=== PATIENT | female | born 1965 | race Caucasian/White ===

== ENCOUNTER 2019-05-30 20:20 | Emergency (ER) | payer BC ==
--- NOTE | 2019-05-30 21:29 | ED ---
Complex/Multi-Sys Presentation - HPI Summary HPI Summary: This patient is a 53 year old F presenting to [facility] accompanied by her with a chief complaint of dizziness, lightheadedness, and nausea since 2-3 weeks ago. Pt states she went to her doctor 2-3 weeks ago, who adjusted her medications. Her symptoms were still present afterwards. Pt notes the dizziness worsens with movement. The patient rates the pain 0/10 in severity. Symptoms aggravated by movement. Symptoms alleviated by nothing. Pt denies eye problems, fever, rhinorrhea. Pt does not smoke. - History Of Current Complaint Chief Complaint: EDGeneral Time Seen by Provider: 05/30/19 21:18 Hx Obtained From: Patient Onset/Duration: Sudden Onset, Lasting Weeks - 2-3 Timing: Weeks - 2-3 Severity Currently: Mild Severity Initially: Mild Aggravating Factor(s): movement makes dizziness worse Alleviating Factor(s): nothing Associated Signs And Symptoms: Positive: Dizziness, Nausea, Other - positive - lightheadedness. negative - eye problems, rhinorrhea.. Negative: Fever - Allergies/Home Medications Allergies/Adverse Reactions: Allergies Allergy/AdvReac Type Severity Reaction Status Date / Time No Known Allergies Allergy Verified 05/30/19 20:34 PMH/Surg Hx/FS Hx/Imm Hx Previously Healthy: No Sensory History: Denies: Hx Cataracts, Hx Vision Problem Opthamlomology History: Denies: Hx Cataracts, Hx Legally Blind EENT History: Denies: Hx Deafness, Hx Auditory Problems - Surgical History Surgical History: None Infectious Disease History: No Infectious Disease History: Denies: Traveled Outside the [place] in Last 30 Days - Family History Known Family History: Positive: None - Social History Alcohol Use: None Substance Use Type: Reports: None Smoking Status (MU): Former Smoker Review of Systems Negative: Fever Eyes: Other - negative - eye problems ENT: Other - negative - rhinnorhea Positive: Nausea Neurological: Other - positive - dizziness and lightheadedness All Other Systems Reviewed And Are Negative: Yes Physical Exam - Summary Physical Exam Summary: Appearance: Well-appearing, Well-nourished, lying in bed comfortably Skin: Warm, dry, no obvious rash Eyes: sclera anicteric, no conjunctival pallor ENT: mucous membranes moist, pharynx appears normal Neck: Supple, nontender Respiratory: Clear to auscultation, no signs of respiratory distress Cardiovascular: Normal S1, S2. No murmurs. Normal distal pulses in tibial and radial bilaterally. Abdomen: Soft, nontender, normal active bowel sounds present Musculoskeletal: Normal, Strength/ROM Intact Neurological: A&Ox3, awake and alert, mentation is normal, speech is fluent and appropriate Psychiatric: affect is normal, does not appear anxious or depressed Triage Information Reviewed: Yes Vital Signs On Initial Exam: Initial Vitals Temp Pulse Resp BP Pulse Ox 98.1 F 72 18 154/123 98 05/30/19 20:33 05/30/19 20:33 05/30/19 20:33 05/30/19 20:33 05/30/19 20:33 Vital Signs Reviewed: Yes Diagnostics - Vital Signs Vital Signs Temp Pulse Resp BP Pulse Ox 05/30/19 20:33 98.1 F 72 18 154/123 98 - Laboratory Lab Statement: Any lab studies that have been ordered have been reviewed, and results considered in the medical decision making process. Complex Multi-Symp Course/Dx Course Of Treatment: This patient is a 53 year old F presenting to [facility] accompanied by her with a chief complaint of dizziness, lightheadedness , and nausea since 2-3 weeks ago. Pt states she went to her doctor 2-3 weeks ago , who adjusted her medications. Her symptoms were still present afterwards. Pt notes the dizziness worsens with movement. The patient rates the pain 0/10 in severity. Symptoms aggravated by movement. Symptoms alleviated by nothing. Pt denies eye problems, fever, rhinorrhea. Pt does not smoke. Physical exam shows no remarkable findings. At 2230, Dr. Felicinao discusses pt's case with Dr. Canchola, ENT, regarding the lack of physical findings concerning mastoid findings of MRI. Pt was discharged. Dx is vertigo. - Diagnoses Provider Diagnoses: Vertigo - Physician Notifications Discussed Care Of Patient With: Cristi Canchola Time Discussed With Above Provider: 22:30 Instructed by Provider To: Other - Dr. Feliciano discusses pt's case with Dr. Canchola, ENT, regarding the lack of physical findings concerning mastoid findings of MRI. Discharge - Sign-Out/Discharge Documenting (check all that apply): Patient Departure - discharge Patient Received Moderate/Deep Sedation with Procedure: No - Discharge Plan Condition: Good Disposition: HOME Patient Education Materials: Vertigo (ED) Referrals: Dawn Yanes [Primary Care Provider] - If Needed Additional Instructions: While the MRI's appearance was concerning for an acute mastoid infection ( mastoiditis), from a clinical standpoint you clearly do not have that illness. Mastoid effusion is quite common as a complication of many middle and inner ear problems, and generally does not require specific treatment. Your PCP can refer you electively to see an ENT physician if your vertigo continues, or if there are other specific concerns. For now, I do not think any specific treatment is required. - Billing Disposition and Condition Condition: GOOD Disposition: Home - Attestation Statements Document Initiated by Estefanía: Yes Documenting Scribe: Parminder Philippe Provider For Whom Estefanía is Documenting (Include Credential): Dr. James Feliciano MD Scribe Attestation: I, rachel Steined for Dr. James Feliciano MD on 05/31/19 at 0417. Scribe Documentation Reviewed: Yes Provider Attestation: The documentation as recorded by the Parminder contreras accurately reflects the service I personally performed and the decisions made by me, Dr. James Feliciano MD Status of Scribe Document: Viewed
[2019-05-30 22:59] VITALS: BP 131/81
== END 2019-05-30 22:58 | disposition home or self-care (01) ==
LOC: ED 20:20
DX: R42 Dizziness and giddiness (principal); Z87.891 Personal history of nicotine dependence
CPT/HCPCS: 99282